=== PATIENT | male | born 1935 | race Caucasian/White ===

== ENCOUNTER → 2018-09-25 | Outpatient (CLI) | payer MEDICARE ==
[~2018-09-25] MED LIST: ASA81 MG PO; DITROPAN5 MG PO; IOPAMIDOL 370 MG/ML 200 ML INFUS..BTL INJ ONE; SODIUM CHLORIDE 0.9% 100 ML 100 ML ONE; Z FELODIPINE PO; Z.0.CLOPIDOGREL75 MG PO; Z.0.LISINOPRIL40 MG PO; Z.0.ZOCOR40 MG PO; Z.1.MINOCYCLINE HC10 PO
[2018-09-25 13:45] LABS: BLOOD UREA NITROGEN 14 mg/dL (7-26); BUN/CREATININE RATIO 18 (6-25); CREATININE, SERUM 0.77 mg/dL (0.72-1.25); EST GLOMERULAR FILTRATION RATE > 60 ML/MIN (60-)
--- NOTE | 2018-09-25 15:47 | Diagnostic Imaging Report ---
CT, CTA lower extremity, with contrast. History: Peripheral vascular disease. Comparison: None available. Technique: Multidetector [address] scanning with 4 mm cuts of the abdomen, pelvis and bilateral lower extremities was performed from the level of the diaphragm to the feet, after intravenous administration of 150 cc of Isovue-370. Scanning during arterial, phases was performed. Coronal and sagittal multiplanar, MIP and 3-D volume-rendering reformations were obtained. Technique modification was utilized to maintain the lowest dose possible to the patient. IV CONTRAST:150mL of Isovue-370 RADIATION DOSE: Total DLP: 693.03 mGy*cm Estimated Effective Dose: DLP x 0.015 mSv COMPLICATIONS: None Discussion: Lower thorax: Coronary artery calcification is present. Severe basilar emphysema. Right lower lobe interstitial opacities. Aortic and abdominal vessels: Calcification within the aorta. Celiac, SMA and bilateral single renal arteries are patent. There is an aorto right iliac graft that is patent. 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 Collateralized reconstitution of the bilateral internal iliac vessels is present. Pelvis vessels: Collateralized reconstitution of internal iliac arteries and the right external iliac artery is noted. Graft anastomosis in the right groin is patent. The left external iliac is occluded with patent femoral profunda vessels. Left [place] SFA and femoropopliteal graft is occluded and the patient is status post vcsvq-cgm-cwnj amputation on the left. Right lower extremity: The [place] right SFA is patent with diffuse areas of atherosclerotic calcification noted. Popliteal is patent. Proximal 3 vessel runoff on the right is present with the posterior tibial extending to the foot. Anterior tibial and peroneal arteries are not visualized past the ankle. Left lower extremity: Status post left aopck-vhh-phll amputation. Occluded femoral artery with only profunda branch is seen in the thigh. There is occlusion of the [place] left SFA and a femoropopliteal graft. Other: There is a benign-appearing cyst involving the upper pole of the left kidney. Both adrenal glands are prominent which may represent hyperplasia. Cyst in the left lobe of the liver. IMPRESSION: 1. Right basilar pulmonary interstitial opacities may represent pneumonia. Clinical correlation suggested. 2. Aorto right femoral graft is patent. 3. 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 4. Left [place] SFA and femoropopliteal graft are occluded. 5. [place] right SFA is patent with significant atherosclerotic calcification. 6. Three-vessel proximal calf runoff with posterior tibial artery extending to the plantar arch. Signed by: Dr. Lb Ortega DO on 09/25/2018 3:44 PM
== END ==
LOC: CT 12:43
PROVIDERS: ATTEND Internal Medicine Cardiovascular Disease
DX: I74.4 Embolism and thrombosis of arteries of extremities, unspecified (principal); I73.9 Peripheral vascular disease, unspecified
CPT/HCPCS: 36415; 73706; 82565; 84520; Q9967

== ENCOUNTER 2018-10-08 09:49 | Inpatient (IN) | payer MEDICARE ==
[2018-10-06 14:03] LABS: BASOPHILS % 0.4 % (0.0-1.0); EOSINOPHILS # (AUTO) 0.1 (0.0-0.4); HEMATOCRIT 44.9 % (38.2-49.6); HEMOGLOBIN 15.4 g/dL (14.0-18.0); LYMPHOCYTES # (AUTO) 1.8 (1.0-3.2); LYMPHOCYTES % 25.1 % (18.0-39.1); MEAN CORPUSCULAR HEMOGLOBIN 30.7 pg (28-32); MEAN CORPUSCULAR HGB CONC 34.3 g/dL (31-35); MEAN CORPUSCULAR VOLUME 89.6 fL (81-99); MONOCYTES # (AUTO) 0.6 (0.2-0.8); MONOCYTES % 8.7 % (4.4-11.3); NEUTROPHILS # (AUTO) 4.5 (2.1-6.9); NEUTROPHILS % 63.7 % (38.7-80.0); PLATELET COUNT 247 x10e3/uL (140-360); RED BLOOD COUNT 5.01 x10e6/uL (4.3-5.7); RED CELL DISTRIBUTION WIDTH 14.1 % (11.7-14.4)
[2018-10-06 14:37] LABS: ALANINE AMINOTRANSFERASE 15 IU/L (0-55); ALBUMIN 3.8 g/dL (3.5-5.0); ALKALINE PHOSPHATASE 75 IU/L (40-150); ANION GAP 12.5 mmol/L (8-16); BLOOD UREA NITROGEN 15 mg/dL (7-26); BUN/CREATININE RATIO 18 (6-25); CALCIUM 10.1 mg/dL (8.4-10.2); CARBON DIOXIDE 27 mmol/L (22-29); CHLORIDE 102 mmol/L (98-107); CHOL/HDL RATIO 2.6 (3.9-4.7); CHOLESTEROL 156 MD/DL (0-199); CREATINE KINASE 37 IU/L (30-200); CREATININE, SERUM 0.83 mg/dL (0.72-1.25); EST GLOMERULAR FILTRATION RATE > 60 ML/MIN (60-); GLUCOSE 71 mg/dL (74-118); HDL CHOLESTEROL 61 MG/DL (40-60); LDL CHOLESTEROL 79 MG/DL (60-130); POTASSIUM 4.5 mmol/L (3.5-5.1); SODIUM 137 mmol/L (136-145); TRIGLYCERIDES 81 MG/DL (0-149)
--- NOTE | 2018-10-06 15:08 | Diagnostic Imaging Report ---
EXAMINATION: CHEST 2 VIEWS INDICATION: Preoperative radiograph. COMPARISON: None FINDINGS: TUBES and LINES: None. LUNGS: The lungs are hyperinflated. There are emphysematous changes of lungs. There is a nodular opacity which projects over the left lower lung. There is patchy opacity in the right lower lung, best seen on lateral radiograph. Linear opacity in the right upper lung may represent scarring or atelectasis. PLEURA: No pleural effusion or pneumothorax. HEART AND MEDIASTINUM: The cardiomediastinal silhouette is unremarkable. There are atherosclerotic calcifications within the aorta. BONES AND SOFT TISSUES: Diffuse osteopenia. There is moderate loss of vertebral body height in the midthoracic vertebral body and mild loss of vertebral body height in a lower thoracic vertebral body. UPPER ABDOMEN: No free air under the diaphragm. IMPRESSION: Emphysematous changes of the lungs. Nodular opacity projecting over the left lower lung may represent nipple shadow or pulmonary nodule. Suggest follow-up chest radiograph with nipple markers or chest CT for further evaluation. Patchy opacity in the right lower lung may represent pneumonia or atelectasis. This can be assessed on follow-up chest radiograph or chest CT. Age-indeterminate moderate loss of vertebral body height in a mid thoracic vertebral body and mild loss of vertebral body height in a lower thoracic vertebral body. Signed by: Dr. Jacob Perez MD on 10/06/2018 3:04 PM
[2018-10-08] VITALS (17 sets, daily range): BP systolic 115–166; BP diastolic 52–85
[~2018-10-08] VITALS: Ht 170.2 cm; Wt 63.6 kg
[~2018-10-08 09:49] MED LIST changes: +AMLODIPINE BESY10 MG PO; +CENTRUM ULTRA1 EAC1 PO; -IOPAMIDOL 370 MG/ML 200 ML INFUS..BTL INJ ONE; +MUCINEX DM ER1 EACH PO; -SODIUM CHLORIDE 0.9% 100 ML 100 ML ONE; +VITAMIN D3 PO
--- OUTSIDE RECORDS SUMMARY | 2018-10-08 09:52 | XMS REPORT ---
Author Author [facility] Address Unknown Phone Unavailable Care Team Providers Care Car Repairman Name Role Phone RASHEED MCDANIEL Unavailable Unavailable Problems This patient has no known problems. Allergies, Adverse Reactions, Alerts This patient has no known allergies or adverse reactions. Medications This patient has no known medications. Results Test Description Test Time Test Comments Text Results Atomic Results Result Comments CHEST 2 VIEWS 2018-10-06 14:57:00 [facility] [address] [address] Patient Name: ADRIANA BENNETT MR #: [id number] : 1935 Age/Sex: 82/M Req #: [id number] [facility] Physician: Ordered by: RASHEED MCDANIEL MD Report #: [id number] Location: LIGHT BULB TESTER Room/Bed: Procedure: [id number] DX/CHEST 2 VIEWS Exam Date: 10/06/18 Exam Time: 1411 REPORT STATUS: Signed EXAMINATION: CHEST 2 VIEWS INDICATION: Preoperative radiograph. COMPARISON: None FINDINGS: TUBES and LINES: None. LUNGS: The lungs are hyperinflated. There are emphysematous changes of lungs. There is a nodular opacity which projects over the left lower lung. There is patchy opacity in the right lower lung, best seen on lateral radiograph. Linear opacity in the right upper lung may represent scarring or atelectasis. PLEURA: No pleural effusion or pneumothorax. HEART AND MEDIASTINUM: The cardiomediastinal silhouette is unremarkable. There are atherosclerotic calcifications within the aorta. BONES AND SOFT TISSUES: Diffuse osteopenia. There is moderate loss of vertebral body height in the midthoracic vertebral body and mild loss of vertebral body height in a lower thoracic vertebral body. UPPER ABDOMEN: No free air under the diaphragm. IMPRESSION: Emphysematous changes of the lungs. Nodular opacity projecting over the left lower lung may represent nipple shadow or pulmonary n odule. Suggest follow-up chest radiograph with nipple markers or chest CT for further evaluation. Patchy opacity in the right lower lung may represent pneumonia or atelectasis. This can be assessed on follow-up chest radiograph or chest CT. Age-indeterminate moderate loss of vertebral body height in a mid thoracic vertebral body and mild loss of vertebral body height in a lower thoracic vertebral body. Signed by: Dr. Deanna Najera MD on 10/06/2018 3:04 PM Dictated By: DEANNA NAJERA MD 1504 Transcribed By: ABDIAZIZ on 10/06/18 1504 COPY TO: RASHEED MCDANIEL MD CTA LOWER EXTREMITY RT ONLY 2018-09-25 15:22:00 [address] [address] Patient Name: ADRIANA BENNETT MR #: [id number] : 1935 Age/Sex: 82/M Req #: [id number] Physician: Ordered by: RASHEED MCDANIEL MD Report #: [id number] Location: CT Room/Bed: Procedure: [id number] CT/CTA LOWER EXTREMITY RT ONLY Exam Date: 09/25/18 Exam Time: 1420 REPORT STATUS: Signed CT, CTA lower extremity, with contrast. H istory: Peripheral vascular disease. Comparison: None available. Technique: Multidetector [address] scanning with 4 mm cuts of the abdomen, pelvis and bilateral lower extremities was performed from the level of the diaphragm to the feet, after intravenous administration of 150 cc of Isovue- 370. Scanning during arterial, phases was performed. Coronal and sagittal multiplanar, MIP and 3-D volume-rendering reformations were obtained. Technique modification was utilized to maintain the lowest dose possible to the patient. IV CONTRAST:150mL of Isovue-370 RADIATION DOSE: Total DLP: 693.03 mGy*cm Estimated Effective Dose: DLP x 0.015 mSv COMPLICATIONS: None Discussion: Lower thorax: Coronary artery calcification is present. Severe basilar emphysema. Right lower lobe interstitial opacities. Aortic and abdominal vessels: Calcification within the aorta. Celiac, SMA and bilateral single renal arteries are patent. There is an aorto right iliac graft that is patent. 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 Collateralized reconstitution of the bilateral internal iliac vessels is present. Pelvis vessels: Collateralized reconstitution of internal iliac arteries and the right external iliac artery is noted. Graft anastomosis in the right groin is patent. The left external iliac is occluded with patent femoral profunda vessels. Left [place] SFA and femoropopliteal graft is occluded and the patient is status post hdpzr-iqm-vafx amputation on the left. Right lower extremity: The [place] right SFA is patent with diffuse areas of atherosclerotic calcification noted. Popliteal is patent. Proximal 3 vessel runoff on the right is present with the posterior tibial extending to the foot. Anterior tibial and peroneal arteries are not visualized past the ankle. Left lower extremity: Status post left chgdk-diz-njbh amputation. Occluded femoral artery with only profunda branch is seen in the thigh. There is occlusion of the [place] left SFA and a femoropopliteal graft. Other: There is a benign-appearing cyst involving the upper pole of the left kidney. Both adrenal glands are prominent which may represent hyperplasia. Cyst in the left lobe of the liver. IMPRESSION: 1. Right basilar pulmonary interstitial opacities may represent pneumonia. Clinical correlation suggested. 2. Aorto right femoral graft is patent. 3. 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 4. Left [place] SFA and femoropopliteal graft are occluded. 5. [place] right SFA is patent with significant atherosclerotic calcification. 6. Three-vessel proximal calf runoff with posterior tibial artery extending to the plantar arch. Signed by: Dr. Alayna Ortega DO on 09/25/2018 3:44 PM Dictated By: ALAYNA ORTEGA DO 1544 Transcribed By: ABDIAZIZ on 09/25/18 1544 COPY TO: RASHEED MCDANIEL MD
[2018-10-08] MEDS ORDERED: METHYLPREDNISOLONE SOD SUCC 125 MG/2ML VIAL ONE (12:07)
[2018-10-08] MEDS ORDERED: DIPHENHYDRAMINE HCL INJ 50 MG/ML VIAL ONE (12:07)
[2018-10-08] MEDS ORDERED: FAMOTIDINE 20 MG TAB ONE (12:08)
--- NOTE | 2018-10-08 12:12 | NUR ---
Solumedrol 125mg IVP, Benadryl 50mg IV and Pepcid 20mg po given pre-op as ordered. Pt tolerated well.
[2018-10-08] MEDS ORDERED: LIDOCAINE HCL 2% LOCAL 20 ML VIAL ONE (13:21)
[2018-10-08] MEDS ORDERED: MIDAZOLAM HCL 2 MG/2 ML VIAL ONE (13:21)
[2018-10-08] MEDS ORDERED: FENTANYL CITRATE/PF 100MCG/2 ML INJ ONE (13:21)
[2018-10-08] MEDS ORDERED: SODIUM CHLORIDE 0.9% 1000ML 1,000 ML ONE (13:22)
[2018-10-08] MEDS ORDERED: HEPARIN SOD/SOD CHLORIDE 2,000 ML ONE (13:22)
[2018-10-08] MEDS ORDERED: IOPAMIDOL 300MG/ML 100 ML INFUS..BTL IV ONE (13:22)
[2018-10-08] MEDS ORDERED: BIVALRIUDIN 250 MG/VIAL VIAL IV ONE (14:41)
[2018-10-08] MEDS ORDERED: SODIUM CHLORIDE 0.9% 50ML 50 ML ONE (14:41)
--- NOTE | 2018-10-08 16:00 | NUR ---
1600p Received pt from well shooter Nurse Corky COVARRUBIAS.Identifierx2 Back to baseline Resp shallow and regular Rt SFA sheath remain in place no Gross signs pain pallor or pressure This is Antegrade stick that requires longer hold Dr Tejada spoke with pt and family regarding necessity of Icu bed. Received 192 Bed assignment awaiting bed readiness .Report to Shon Covarrubias Icu Nurse regarding pt status. After 7pm may be pulled then Bedrest till 8am. Iv infusing w/o s/s infiltration 7occhr Family remains at bedside VS stable NSR. ds/rn
--- NOTE | 2018-10-08 16:00 | NUR ---
1600 received pt in slab worker #10Peripheral angiogram Dr Tejada Total rt FSA blockage needed clearing for pantheistic left foot assist device to be implemented.5FR sheath remain sutured in place and ok to remove 1899. Stick was antorgrade. Bed ordered for ICu has Ns Iv replaced with D51/2 at 70cchr via dial a flow per Dr Carlos request since pt flat and NPO. Iv site w/o s/s infiltration. Angio max infusion completed per slab worker nurse Ruthie. Pt received 25 fentanyl and 1 versed in procedure. Rt marylin dressing dry and intact. Condom cath attached to bedside drain and urine clear.Pt has Iodine allergy and pre medicated per ICU team to prevent reaction. Report was given to Danilo COVARRUBIAS. Foot remain warm to touch with blanching less than 3seconds No digression of circulation to extremity. Family at bedside Aware of plan of care and Dr Tejada spoke with family in slab worker. Bed request in teletracker and house supv as well as ICU aware of necessity of down time to 8am. cecil/veronique Addendum: 10/08/18 at 2052 by Homa Lipscomb RN 1600 correction premed for iodine allergy given by slab worker sedation nurses in slab worker. No noted allergy reaction noted during or after slab worker procedure. faisal
[2018-10-08] MEDS ORDERED: HYDROCODONE/APAP 5MG-325MG TAB PO PRN (16:45)
--- NOTE | 2018-10-08 19:00 | NUR ---
1900 Transfered pt via bed to ICU 192 with Zoll monitor, No gross issues of pain ,pallor, pressure or dysrhythmia.Rt sheath intact no oozing or hematoma.Gave verbal phone report to Danilo REAGAN who requested holding pt additional 30minutes We did give addional second face to face report after shift change. Did have Supv. Kate Reagan assist with escort of pt via bed. No active CP or complaints.Left pt with side rails up and tele on per ICU nurses call light at bedside. ds/rn
[2018-10-08] MEDS: DEXTROSE 5%/0.45% SOD CHL 1,000 ML IV SCH (21:15)
[2018-10-08] MEDS: LORAZEPAM 0.5 MG TAB PO PRN (21:45)
[2018-10-08] MEDS ORDERED: HALOPERIDOL LACTATE 5 MG/ML VIAL IV STA (22:33)
[2018-10-08] MEDS ORDERED: HALOPERIDOL LACTATE 5 MG/ML VIAL ONE (22:37)
[2018-10-08] MEDS ORDERED: LORAZEPAM INJ 2 MG/ML VIAL ONE (23:07)
[2018-10-08] MEDS ORDERED: NICOTINE 21 MG/EA PATCH ONE (23:15)
[2018-10-08] MEDS ORDERED: NICOTINE 21 MG/EA PATCH TOP STA (23:31)
[2018-10-08] MEDS ORDERED: LORAZEPAM INJ 2 MG/ML VIAL IV STA (23:31)
[2018-10-09] VITALS (21 sets, daily range): BP systolic 122–176; BP diastolic 56–92
[2018-10-09] MEDS ORDERED: LORAZEPAM INJ 2 MG/ML VIAL IV ONE (05:00)
--- NOTE | 2018-10-09 05:10 | NUR ---
pt is refusing to keep any monitoring equipment on rips very thing he has on his body off called dr crowley got order for medication did not make any change in condition. he is refusing to follow orders when it comes to keeping his leg straight after sheath removal. has attemppted to get out of bed several times and has become increasingly violent with staff
[2018-10-09] MEDS: LORAZEPAM 0.5 MG TAB PO PRN ×2 (09:25→21:26)
--- NOTE | 2018-10-09 10:42 | Diagnostic Imaging Report ---
EXAM: CHEST SINGLE (PORTABLE) DATE: 10/09/2018 9:54 AM INDICATION:Pneumonia COMPARISON: Chest x-ray, 10/06/2018 FINDINGS: Lines and tubes: None Heart size normal. Previous patchy opacity in the left lower lobe has improved. There is a persistent 1.3 cm nodular density in the lower lobe which may represent a pulmonary nodule or overlapping vascular markings. No pleural effusion or pneumothorax. Upper abdomen unremarkable. No acute bony abnormality. IMPRESSION: 1. Improvement of lower lobe pneumonia since last exam. 2. Persistence of 1.3 cm nodular density in the left lower lobe. Recommend noncontrast chest CT to exclude lung nodule. Signed by: Dr. Shahid Watson M.D. on 10/09/2018 10:39 AM
[2018-10-09] MEDS ORDERED: PANTOPRAZOLE 40 MG 10ML VIAL IV SCH (11:15)
[2018-10-09 11:18] LABS: BASOPHILS % 0.2 % (0.0-1.0); EOSINOPHILS % 0.1 % (0.0-6.0); HEMATOCRIT 44.9 % (38.2-49.6); HEMOGLOBIN 15.1 g/dL (14.0-18.0); LYMPHOCYTES # (AUTO) 1.3 (1.0-3.2); LYMPHOCYTES % 8.3 % (18.0-39.1); MEAN CORPUSCULAR HEMOGLOBIN 30.4 pg (28-32); MEAN CORPUSCULAR HGB CONC 33.6 g/dL (31-35); MEAN CORPUSCULAR VOLUME 90.3 fL (81-99); MONOCYTES # (AUTO) 1.2 (0.2-0.8); MONOCYTES % 7.6 % (4.4-11.3); NEUTROPHILS # (AUTO) 12.8 (2.1-6.9); NEUTROPHILS % 83.5 % (38.7-80.0); PLATELET COUNT 269 x10e3/uL (140-360); RED BLOOD COUNT 4.97 x10e6/uL (4.3-5.7); RED CELL DISTRIBUTION WIDTH 13.9 % (11.7-14.4)
[2018-10-09 11:31] LABS: ANION GAP 12.9 mmol/L (8-16); BLOOD UREA NITROGEN 14 mg/dL (7-26); BUN/CREATININE RATIO 19 (6-25); CALCIUM 9.9 mg/dL (8.4-10.2); CARBON DIOXIDE 23 mmol/L (22-29); CHLORIDE 106 mmol/L (98-107); CREATININE, SERUM 0.72 mg/dL (0.72-1.25); EST GLOMERULAR FILTRATION RATE > 60 ML/MIN (60-); GLUCOSE 112 mg/dL (74-118); POTASSIUM 3.9 mmol/L (3.5-5.1); SODIUM 138 mmol/L (136-145)
--- NOTE | 2018-10-09 12:52 | Diagnostic Imaging Report ---
EXAMINATION: CT scan of the chest without contrast. TECHNIQUE: Spiral CT images of the chest were performed from the lung apices to the level of the adrenal glands. No intravenous contrast was administered per referring physician request. Coronal and sagittal reformatted images were obtained. COMPARISON: Single view chest 10/09/2018, CTA abdomen and pelvis and right lower extremity 09/25/2018 CLINICAL HISTORY:Pneumonia DISCUSSION: ABSENCE OF INTRAVENOUS CONTRAST DECREASES SENSITIVITY FOR DETECTION OF FOCAL LESIONS AND VASCULAR PATHOLOGY. LINES/TUBES: None. LUNGS AND AIRWAYS: Advanced upper lobe predominant centrilobular and paraseptal emphysematous changes. 1.8 cm spiculated discoid opacity with architectural distortion in the right apex (series 3 image 53). 1.8 cm lobulated nodule in the anterior segment of the left lower lobe, abutting the major fissure (series 3 image 81). 6 mm nodule in the posterior segment of the left lower lobe series 3 image 85) coarse reticular opacities in the dependent lower lobes likely reflect subsegmental atelectasis or focal fibrotic change. Trachea, mainstem bronchi, and central lobar and segmental bronchi are patent. Endobronchial debris in the posterior basal segmental right lower lobe bronchus series 3 image 98). PLEURA: No pneumothorax or pleural effusions. HEART AND MEDIASTINUM: Visualized portions of the thyroid gland are normal. Borderline ectasia of the ascending thoracic aorta (3.9 cm). Atherosclerotic calcifications of the [place] coronary arteries and great vessel origins which are otherwise normal in caliber and configuration. Pulmonary outflow tract is of normal caliber. Normal heart size. Trace pericardial effusion. LYMPH NODES: No axillary, hilar, or mediastinal lymphadenopathy. ABDOMEN: Visualized portions of the liver are notable for a cyst in segment 3. Left renal cyst is again noted. Density within the gallbladder likely reflects biliary excretion of intravenous contrast from CTA lower extremity 09/25/2018. Subcentimeter hyperdense left upper pole renal lesion is too small to further characterize though likely represents a hemorrhagic or proteinaceous cyst. BONES AND SOFT TISSUES: Diffuse osteopenia. No osseous destructive lesions. Age-indeterminate mild anterior compression deformity of T8. Multilevel degenerative disc changes of the cervical and thoracic spine. Bilateral healed rib fracture deformities. IMPRESSION: Reticular and groundglass opacities in the dependent lower lobes, right greater than left, likely aspiration pneumonitis given presence of endobronchial debris within right lower lobe segmental bronchi as above. Advanced emphysematous changes. Right apical spiculated discoid opacity likely represents post infectious or inflammatory fibrotic change, though the differential diagnosis includes primary lung neoplasm. Similarly, 1.8 cm left lower lobe lobulated nodule is indeterminate. Given presence of 2 suspicious nodules and advanced emphysematous changes portending high risk of complication in the attempt of percutaneous biopsy, PET-CT should be considered to further evaluate metabolic activity of the nodules prior to tissue sampling. Age-indeterminate mild anterior compression deformity of T8. Point tenderness over this region of the spine would suggest relative acuity. Signed by: Dr. Blaine Schrader M.D. on 10/09/2018 12:49 PM
--- NOTE | 2018-10-09 13:35 | NUR ---
Visit made by the Spiritual Care Department Pastoral Visitor, Elvis Mcarthur. PV provided pastoral presence, prayer, hospitality, and supportive listening. Pastoral Visitor informed pt/family of the scope of [employer] and availability. KELSEY FELIX [employer] Worker Spiritual Care Department O: [phone] Pager: [phone] ([phone] + number calling from)
--- NOTE | 2018-10-09 15:28 | Operative Report ---
DATE OF PROCEDURE: 10/08/2018 SURGEON: Jonatan Johnson MD DIAGNOSES: 1. Severe peripheral vascular disease of the right lower extremity. 2. 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 3. Hyperlipidemia. 4. Hypertension. 5. Chronic obstructive pulmonary disease. PROCEDURES: 1. Right femoral angiogram, antegrade. 2. Unsuccessful attempt to cannulate the total occlusion of the right distal superficial femoral artery. ANESTHESIA: Local and moderate sedation with 1 mg of Versed and 25 mcg of fentanyl. INDICATIONS: This 82-year-old patient was recently evaluated because of claudication and swelling of the right lower extremity while in preparation for getting a prosthesis of the left lower extremity by the [facility]. The patient had initial ultrasound examinations, which did not reveal any DVT; however, the ultrasound study on September 23 showed severe disease of the right lower extremity with single-vessel runoff in the posterior descending branch towards the collaterals to the dorsalis pedis. Subsequently, the patient had CTA of the right lower extremity, which also showed severe disease of the right superficial femoral artery with multiple high-grade stenotic areas. However, the right popliteal and posterior tibial trunk as well as posterior tibial artery were patent. There were short segments of the peroneal and right anterior tibial arteries noted, which were totally occluded in their proximal portion. The study also showed that the graft from the aorta to the left femoral artery has been occluded as well as total occlusion of both common iliac arteries. There was some collateral flow to the left femoral artery and profunda branch. Recognizing the severe disruption of arterial blood flow to the stump of the left leg, preparation of prosthesis of the left lower extremity and showing such severe stenotic areas on the right lower extremity, which probably is not going to support the ambulation of the patient and his present symptoms affecting his right lower extremity, he was advised to undergo right femoral angiogram and possible intervention and the patient was now admitted for the study and the recommended procedure. DESCRIPTION OF PROCEDURE: After the usual prepping and draping, the right inguinal area was infiltrated with local lidocaine. Micropuncture kit was utilized to get access to the right femoral artery and a 5-[place] arterial sheath was then placed into the right femoral artery followed by angiogram of the right lower extremity. It was found that in addition to the high-grade stenotic areas in the proximal, mid, and distal portion of the right SFA, there was now total occlusion of the distal right superficial femoral artery, popliteal artery, anterior tibial peroneal branch, and only a collateral connection was seen, which originated just distal to a high-grade 99% stenosis involving the right SFA to the posterior tibial branch. This apparently had occurred after the CTA performed on September 25 showing real rapid progression of the patient's disease involving the right lower extremity. Since the total occlusion appeared to be recently, it was considered to intervene and attempt to open up the total occlusion of the distal superficial femoral artery. However, because of the multiple stenotic areas in entire right superficial femoral artery course, this became quite difficult to advance guidewire to the area of total occlusion. The guidewire could not be advanced beyond the total occlusion and after changing 0.014 Hi-Torque Floppy guidewire to a 0.014 Whisper guidewire. Seeker catheter by Roman was then advanced over the guidewire and positioned just at the level of the total occlusion. Throughout this procedure, the patient had been given initial Angiomax bolus and was continued on an Angiomax drip. However, even with support of the Seeker and the previously using a 4 mm x 2 cm Emerge balloon catheter, it was impossible to advance the Whisper guidewire into the total occlusion involving the distal segment of the superficial femoral artery and popliteal artery as described above. After the advancement of the guidewire has failed and limit of the radiation supposedly has been reached, it was felt that the procedure should be terminated and the alternative to advance a stiffer guidewire through the Seeker for achievement of crossing the lesion was abolished. The guidewire and Seeker catheter were then removed, the arterial sheath was secured with sterile dressing and the patient was transferred in the observation area. Angiomax was discontinued and the sheath will be removed within 2-3 hours thereafter. All this information was relayed to the patient and to the and nieces of the patient. Final. IMPRESSION: Severe peripheral vascular disease with high-grade stenotic areas involving the right entire superficial femoral artery and the total occlusion of the distal superficial femoral artery with only a single collateral to the posterior tibial artery branch showing patency to the right foot. The situation is quite precarious and the patient is at higher risk of possibly losing his right lower extremity. Certainly other intervention could be considered in addition to right femoral to posterior tibial artery bypass using the patient's saphenous vein. The patient was encouraged to discontinue his heavy smoking which certainly is the main contributor to the patient's severe peripheral vascular disease. MD AMALIA Hunt/MODL /[id number] cc: Kennedy Keita MD
[2018-10-09] MEDS ORDERED: OLANZAPINE 5 MG TAB PO PRN (15:30)
[2018-10-09] MEDS: DEXTROSE 5%/0.45% SOD CHL 1,000 ML IV SCH ×2 (16:29→19:52)
[2018-10-09] MEDS: CEFTRIAXONE SOD 1 GM/NS 50 ML 50 ML IV SCH (16:29)
[2018-10-09] MEDS ORDERED: PANTOPRAZOLE SOD 40 MG TABEC PO SCH (17:00)
[2018-10-09] MEDS: PANTOPRAZOLE 40 MG 10ML VIAL IV SCH (17:48)
[2018-10-09] MEDS: HALOPERIDOL LACTATE 5 MG/ML VIAL IM PRN (19:37)
--- NOTE | 2018-10-09 22:50 | Consultation ---
DATE OF CONSULTATION: 10/09/2018 Psychiatric Consultation. REASON FOR CONSULTATION: To evaluate the patient for confusion. HISTORY OF PRESENT ILLNESS: The patient is an 82 years old male, admitted to the hospital for a peripheral angiogram. Psychiatric consultation sought to evaluate the patient's psychosis and mood. Upon evaluation, the patient is currently in the ICU, surrounded by his family members. The patient agrees to have a members present during the assessment. The patient is alert, awake, and oriented to self. He had difficulty with word finding and took quite some time to state that he is in the hospital. He does not know the current year. He states that he has been feeling depressed due to his medical issues. The patient claims that he has problems with his legs. He denies feeling hopeless or helpless. Denies any hallucination. Denies any problem with appetite or sleep. Collaborative report from the , who reports the patient has been depressed due to his legs. He has left above knee amputation and he was scheduled to have possible right leg prosthesis, but the right leg now having problem, so there may be a possible amputation to the right leg as well. This is a report from the patient's . She is concerned that he is smoking lot and refuses to stop. As per nursing staff, the patient was agitated today and he had the nurse and he received Ativan and it helped and relaxed him the patient's agitation. Nurse also reports that he was hallucinating and threaten to (cut her nose). PAST PSYCHIATRIC HISTORY: The patient denies any past psychiatric history. He denies any past suicide attempts. He denies any alcohol or drug use. FAMILY HISTORY: Denies. SOCIAL HISTORY: The patient lives with his . MENTAL STATUS EXAM: The patient is elderly man, who is alert, awake, and oriented to situation. His mood is depressed and denies any suicidal or homicidal ideation. He denies any hallucination. Thought process is concrete. No delusional disorder. Insight and judgment are fair. Memory appears to be grossly intact. CURRENT MEDICATION: 1. Ativan 0.5 mg p.o. three times a day as needed. 2. Dextrose/sodium chloride. 3. Ceftriaxone. 4. Protonix. 5. Clonidine. 6. Wright. CURRENT LAB: WBC 15.3, RBC , hemoglobin 15.1, hematocrit 44.9. Chemistry: Sodium 138, potassium 3.9, chloride 106, CO2 of 23, BUN 14, and creatinine 0.72. ASSESSMENT AND PLAN: 1. Unspecified psychosis. 2. Unspecified dementia with behavior disturbances. PLAN: 1. To continue Ativan 0.5 mg p.o. three times a day as needed. 2. . 3. Wellbutrin 75 mg p.o. daily. 4. Zyprexa 2.5 mg p.o. q.6 hours p.r.n. 5. Monitor agitation and mood. 6. Supportive therapy. Thank you for this consultation. Dictated by Dawna Virk PA-C Yolette Amado MD QTV/MODL /[id number]
--- NOTE | 2018-10-09 23:32 | NUR ---
ATTEMPTED TO UN RESTRAIN PATIENT WITH AT BEDSIDE. PATIENT VERY COMBATIVE AND ATTEMPTS TO KICK STAFF AND SCREAMING OUT. ALL STAFF REQUIRED TO HOLD HIM DOWN AND RESTRAIN AGAIN. PATIENT IS UNSAFE
[2018-10-10] VITALS (15 sets, daily range): BP systolic 135–187; BP diastolic 67–107
--- NOTE | 2018-10-10 01:46 | NUR ---
PATIENT WITH OCCASIONAL BRADYCARDIA WHEN SLEEPING
[2018-10-10] MEDS: PANTOPRAZOLE 40 MG 10ML VIAL IV SCH ×2 (10:20→21:11)
[2018-10-10] MEDS: BUPROPION HCL 75 MG TAB PO SCH (10:20)
[2018-10-10] MEDS: ALBUTEROL/IPRATROPIUM 3 ML NEB NEB SCH ×2 (13:45→18:48)
[2018-10-10] MEDS: NICOTINE 21 MG/EA PATCH TOP SCH (19:04)
--- NOTE | 2018-10-10 19:06 | NUR ---
Received patient to unit from ICU at this time. Patient is currently A&Ox3. No pain reported. Lung sounds clear. Bowel sounds active. No IV access at this time, PICC line to be placed shortly. Explained necessity of NPO status due to aspiration risk. Patient and family member verbalized understanding. Skin is thin, small skin tear noted to hands. Allevyn patch to sacrum. C/D/I. Q2 turns initiated. Bed locked in lowest position, side rails upx2, call light in reach.
--- NOTE | 2018-10-10 20:47 | Diagnostic Imaging Report ---
EXAMINATION: CHEST XRAY LINE PLACEMENT INDICATION: ^PICC plalcement confirmation ^[id number] ^2009 COMPARISON: 10/09/2018 FINDINGS: AP view TUBES and LINES: Right PICC in place with tip projecting over the mid to inferior SVC. LUNGS: Lungs are well inflated. Mild interstitial edema. Emphysematous changes, right upper lobe opacity, and left lower lobe nodule, better seen on prior CT. Mild left lower lung field haziness. PLEURA: No significant pleural effusion or pneumothorax. HEART AND MEDIASTINUM: The cardiomediastinal silhouette is unremarkable. BONES AND SOFT TISSUES: No acute osseous lesion. Soft tissues are unremarkable. UPPER ABDOMEN: No free air under the diaphragm. IMPRESSION: Right PICC in place with tip projecting over the mid to inferior SVC. No visible pneumothorax. Mild interstitial edema. Emphysematous changes and nodular opacities, better seen on prior CT. Focal mildly increased left lower lung field haziness, representing atelectasis and/or pneumonia in the appropriate clinical context. Signed by: Dr. Don Rivero MD on 10/10/2018 8:44 PM
[2018-10-10] MEDS: DEXTROSE 5%/0.45% SOD CHL 1,000 ML IV SCH (21:07)
[2018-10-10] MEDS: CEFTRIAXONE SOD 1 GM/NS 50 ML 50 ML IV SCH (21:08)
[2018-10-10] MEDS: CLONIDINE HCL 0.1 MG TAB PO PRN (21:15)
--- NOTE | 2018-10-10 21:15 | NUR ---
Patient's PICC line placed. Patient requested bedbath, so could not start IV fluids until this time. IV fluids, antibiotic, and protonix delayed from day shift due to no IV access. Fluids initiated at this time. PICC line asymptomatic, intact, and patent. Patient's BP was 187/80, medication given in applesauce. Patient sat up to 90 degrees, no difficulty swallowing noted. Instructed patient to stay up in bed at least 30 mins. Patient, family member, and staff verbalized understanding. Will continue to monitor.
[2018-10-11] VITALS (8 sets, daily range): BP systolic 127–165; BP diastolic 62–70
[2018-10-11] MEDS: ALBUTEROL/IPRATROPIUM 3 ML NEB NEB SCH ×4 (00:37→18:55)
--- NOTE | 2018-10-11 02:45 | NUR ---
Telemetry called with patient's HR in 30s and 40s. When roused, HR goes back up.
--- NOTE | 2018-10-11 07:15 | NUR ---
MET PATIENT FOR BEDSIDE REPORT WITH OFF-GOING RNLG, PATIENT DENIED PAIN, PATIENT ALERT AND ORIENTED TO PERSON, PLACE, TIME, AND SITUATION, PATIENT DENIES PAIN AND DISCOMFORT, PATIENT'S LEFT LEG SHOWS PINKNESS UP UNTIL HIS JUST ABOVE HIS ANKLE WHERE THE SKIN IS DARK RED, PATIENT'S LEFT LEG IS COOL TO THE TOUCH, PATIENT SHOWS NO SIGNS OF DISTRESS.
[2018-10-11] MEDS: NICOTINE 21 MG/EA PATCH TOP SCH (11:16)
[2018-10-11] MEDS: BUPROPION HCL 75 MG TAB PO SCH (11:16)
[2018-10-11] MEDS: PANTOPRAZOLE 40 MG 10ML VIAL IV SCH ×2 (11:16→16:26)
[2018-10-11] MEDS: DEXTROSE 5%/0.45% SOD CHL 1,000 ML IV SCH (11:16)
[2018-10-11] MEDS: CEFTRIAXONE SOD 1 GM/NS 50 ML 50 ML IV SCH (16:26)
--- NOTE | 2018-10-11 19:08 | NUR ---
Received patient in report. Patient is A&Ox3, smiling at staff. Patient reports no pain at this time. R upper arm PICC line asymptomatic, intact, and patent. Bed locked in lowest position, with bed alarm on, side rails upx2, call light in reach.
[2018-10-12] VITALS (7 sets, daily range): BP systolic 124–163; BP diastolic 61–71
[2018-10-12] MEDS: DEXTROSE 5%/0.45% SOD CHL 1,000 ML IV SCH ×3 (01:57→23:06)
--- NOTE | 2018-10-12 03:45 | NUR ---
Patients bed alarm went off. Entered room to find patient sitting on side of bed, gown off, tele monitor off. Asked patient why he was trying to get out of bed, patient stated he thought something fell off the bed that needed to get and wasn't sure exactly what happened. Replaced gown on patient, explained if something fell off the bed to call us and we would get it, and he needed to stay in bed for safety. Patient verbalized understanding. Patient cooperated getting in bed and situated. No pain reported. No S&S of distress noted. Personal belongings placed within patient's reach. Bed locked in lowest position, side rails upx2, call light in reach. Bed alarm on. Alternating pressure pump on. Patient stated he would call if he needed anything but was going to try to go back to sleep.
[2018-10-12 05:41] LABS: BASOPHILS % 0.2 % (0.0-1.0); EOSINOPHILS # (AUTO) 0.1 (0.0-0.4); EOSINOPHILS % 0.9 % (0.0-6.0); HEMATOCRIT 43.1 % (38.2-49.6); HEMOGLOBIN 14.4 g/dL (14.0-18.0); LYMPHOCYTES % 10.8 % (18.0-39.1); MEAN CORPUSCULAR HEMOGLOBIN 30.3 pg (28-32); MEAN CORPUSCULAR HGB CONC 33.4 g/dL (31-35); MEAN CORPUSCULAR VOLUME 90.5 fL (81-99); MONOCYTES # (AUTO) 0.9 (0.2-0.8); NEUTROPHILS % 77.7 % (38.7-80.0); PLATELET COUNT 210 x10e3/uL (140-360); RED BLOOD COUNT 4.76 x10e6/uL (4.3-5.7); RED CELL DISTRIBUTION WIDTH 14.1 % (11.7-14.4)
[2018-10-12 05:56] LABS: ANION GAP 10.9 mmol/L (8-16); BLOOD UREA NITROGEN 11 mg/dL (7-26); BUN/CREATININE RATIO 14 (6-25); CALCIUM 9.1 mg/dL (8.4-10.2); CARBON DIOXIDE 25 mmol/L (22-29); CHLORIDE 106 mmol/L (98-107); CREATININE, SERUM 0.76 mg/dL (0.72-1.25); EST GLOMERULAR FILTRATION RATE > 60 ML/MIN (60-); GLUCOSE 112 mg/dL (74-118); POTASSIUM 3.9 mmol/L (3.5-5.1); SODIUM 138 mmol/L (136-145)
[2018-10-12] MEDS: ALBUTEROL/IPRATROPIUM 3 ML NEB NEB SCH ×4 (08:15→19:00)
[2018-10-12] MEDS: CLONIDINE HCL 0.1 MG TAB PO PRN (08:36)
[2018-10-12] MEDS: NICOTINE 21 MG/EA PATCH TOP SCH (08:36)
[2018-10-12] MEDS: BUPROPION HCL 75 MG TAB PO SCH (08:36)
[2018-10-12] MEDS: PANTOPRAZOLE 40 MG 10ML VIAL IV SCH ×2 (08:36→17:28)
--- NOTE | 2018-10-12 13:42 | Diagnostic Imaging Report ---
EXAM: Modified barium swallow with Speech Pathologist INDICATION: ^aspiration pneumonia ^[id number] ^[id number] COMPARISON: None available. RADIATION DOSE: Fluoroscopy Time: 2.4 min Dose (Kerma) Area Product: 0.61 Gycm2 Air Kerma (AK) value has been reviewed. It is below the limits set by the Radiation Protocol Committee (RPC) committee. FINDINGS: See impression IMPRESSION: Trace laryngeal penetration and silent aspiration with initial ingestion of thin liquid barium. Refer to speech pathology report for detailed description and recommendations. Signed by: Dr. Blaine Schrader M.D. on 10/12/2018 1:38 PM
[2018-10-12] MEDS ORDERED: BISACODYL 5 MG TAB EC PO NR (14:00)
--- NOTE | 2018-10-12 14:35 | NUR ---
SPOKE WITH MD MCDANIEL REGARDING PT PLAN OF CARE STATES PT CAN POSSIBLY GO HOME TOMORROW AFTER STRESS TEST COMPLETE
--- NOTE | 2018-10-12 14:55 | NUR ---
LUJAN DC PER HERMANZ ORDERS . PT VOIDED AFTER LUJAN REMOVAL 50CC ON URINAL
--- NOTE | 2018-10-12 15:12 | Progress Note ---
DATE: 10/12/2018 Psychiatric Progress Note SUBJECTIVE: The patient is evaluated and events noted. The patient is in the room. He is with his . He is alert, awake, and oriented to situation. He is calm, cooperative. The patient does not know the year. He has not received any p.r.n. IM medication or p.r.n. p.o. medications since , which is at least 2 ago. He is at baseline as per the . He denies any depression. Denies anxiety. Denies any hallucinations. He states that he did not sleep well last night. He denies any problem with appetite. He is taking his medications and denies any side effects. ASSESSMENT AND PLAN: 1. Unspecified psychosis. 2. Unspecified dementia with behavior disturbances. 3. Continue with Wellbutrin 75 mg p.o. daily. 4. Continue with Zyprexa 2.5 mg p.o. q.6 hours p.r.n. 5. Continue Ativan 0.5 mg p.o. three times a day as needed. 6. Continue Haldol 2 mg IM q.6 hours p.r.n. 7. Add Namenda 5 mg p.o. daily. 8. Monitor for mood. 9. Supportive therapy. Dictated by Dawna Virk PA-C Yolette Amado MD QTV/MODL /[id number]
[2018-10-12] MEDS: CEFTRIAXONE SOD 1 GM/NS 50 ML 50 ML IV SCH (15:22)
--- NOTE | 2018-10-12 15:38 | NUR ---
PT OFF UNIT FOR CHEST X RAY
--- NOTE | 2018-10-12 16:14 | Diagnostic Imaging Report ---
Examination: Single AP view of the chest. COMPARISON: Chest radiograph 10/10/2018, CT chest without contrast 10/09/2018 INDICATION: Aspiration pneumonia DISCUSSION: Right upper extremity PICC is unchanged. Lungs are well-inflated with upper lobe predominant emphysematous changes. Patchy bilateral lower lung zone opacities are unchanged. 1.8 cm left lower lung nodule is again noted. Right upper lobe spiculated opacity is seen to better advantage on comparison CT. No new consolidation. Stable cardiomediastinal contour. Unchanged compression deformity of a midthoracic vertebral body. IMPRESSION: Stable emphysematous changes with patchy bibasilar opacities, likely aspiration pneumonitis and associated atelectasis. For further description of thoracic pathology refer to CT chest without contrast 10/09/2018. Signed by: Dr. Blaine Schrader M.D. on 10/12/2018 4:11 PM
--- NOTE | 2018-10-12 16:17 | NUR ---
PT BACK FROM RADIOLOGY. PT IS RESTING IN BED COMFORTABLY RESTING IMAGES FOR STRESS TEST BEING DONE AT THIS TIME
[2018-10-12] MEDS ORDERED: REGADENOSON 0.4 MG/5 ML SYR IV ONE (18:48)
[2018-10-13] VITALS: BP 122/59
--- NOTE | 2018-10-13 05:01 | NUR ---
CHANGED ALLEVYN DRESSING TO SACRUM AT THIS TIME.
[2018-10-13] MEDS: HALOPERIDOL LACTATE 5 MG/ML VIAL IM PRN (06:28)
--- NOTE | 2018-10-13 06:28 | NUR ---
PT IS AGITATED AND COMBATIVE. PT STATED " GIVE ME THE FUCKING PHONE MIGUELINA, I'M GONNA CALL THE EMBOSSING PRESS OPERATOR. I'LL CALM DOWN WHEN THE EMBOSSING PRESS OPERATOR GET HERE. MIGUELINA GIVE ME THE GUN, I'M GONNA START BLOWING HEADS OFF HERE IF THE DON'T GET OUT OF MY HOUSE. THEY'RE TRESPASSING." ORIENTED PT TO PLACE. PT INSIST THAT WE ARE IN HIS HOUSE. MEDICATED WITH HALDOL FOR AGITATION.
--- NOTE | 2018-10-13 07:17 | NUR ---
PT RESTING IN BED AAX2, IS AT BEDSIDE PT IS AGITATED AT THIS TIME, RECEIVED HALDOL ABOUT AN HOUR PT HAS IV FLUIDS WITH D5 TO THE RIGHT UPPER PICC LINE. SITE IS COVERED WITH COBAN AREA IS CLEAN AND DRY WILL CONTINUE TO MONITOR PT AT THIS TIME SIDE RAILSX3, WHEELS LOCKED, CALL LIGHT IS WITHIN EASY REACH, INSTRUCTED TO CALL IF NEEDED BED ALARM ON
[2018-10-13 08:44] VITALS: BP 165/70
[2018-10-13 08:58] VITALS: BP 165/70
[2018-10-13] MEDS: BUPROPION HCL 75 MG TAB PO SCH (08:58)
[2018-10-13] MEDS: PANTOPRAZOLE 40 MG 10ML VIAL IV SCH (08:58)
[2018-10-13] MEDS: NICOTINE 21 MG/EA PATCH TOP SCH (08:58)
[2018-10-13] MEDS ORDERED: MEMANTINE 10 MG TAB PO SCH (09:00)
[2018-10-13] MEDS: DEXTROSE 5%/0.45% SOD CHL 1,000 ML IV SCH (11:24)
--- NOTE | 2018-10-13 11:46 | NUR ---
PT TAKEN FOR STRESS TEST AT THIS TIME VIA WHEEL CHAIR SPOKE WITH THAI REGARDING PT AGITATION STATUS . SHE WILL HAVE SOMEONE STAY WITH PT AT ALL TIMES
[2018-10-13 11:49] VITALS: BP 144/66
[2018-10-13] MEDS: ALBUTEROL/IPRATROPIUM 3 ML NEB NEB SCH (13:00)
[2018-10-13] MEDS ORDERED: LORAZEPAM INJ 2 MG/ML VIAL IM PRN (13:30)
--- NOTE | 2018-10-13 13:31 | NUR ---
SPOKE WITH MD MCDANIEL REGARDING PT STRESS TEST COMPLETE AND FAMILY WANTING PT DC NOTIFIED HIM OF PT MENTAL STATUS OF TODAY WITH INT AGITATION. MD DONIS STATES TO ASK IF SHE HAS SUPPORT TO TAKE CARE OF AT HOME . SPOKE WITH ABOUT WHAT MD MCDANIEL STATES IS CALLING FAMILY FOR SUPPORT SHE WILL LET ME KNOW IF SUPPORT AT HOME IS FOUND
--- NOTE | 2018-10-13 14:25 | NUR ---
WAS APPROACHED BY NURSE WHOM STATES [employer] [facility]LEY WAS TOLD TO PUT IN A SOCIAL SERVICE CONSULT BECAUSE PT NEEDS HOME ASSISTANCE. WENT AND SPOKE WITH PT AND GAVE RESOURCES FOR VISITING [employer] PROVIDER SERVICES AND ALSO A SENIOR RESOURCE GUIDE FOR SHELTER CARE PLACEMENT OPTIONS. ADVISED ALSO TO CALL INSURANCE COMPANY TO SEE IF THEY HAVE PROVIDER SERVICES INCLUDED IN THEIR POLICY AND TO SEE IF THEY CAN SEND OUT A PROJECT ADMINISTRATIVE ASSISTANT TO ASSIST WITH COMMUNITY OPTIONS.
--- NOTE | 2018-10-13 15:06 | NUR ---
SPOKE WITH FAMILY ( ) STATES SHE HAS FOUND SUPPORT SYSTEM TO HELP HER WITH PT. SOCIAL SERVICE CONSULTED AND HAS GIVEN PT OPTIONS FOR ADDITIONAL HELP UPON DISCHARGE NOTIFIED MD MCDANIEL REGARDING THIS . MD CASE WITH PT GOING HOME AT THIS TIME MD ORDERS A FOLLOW UP VISIT ON FRIDAY WILL DC PT AT THIS TIME
[2018-10-13] MEDS ORDERED: WELLBUTRIN SR150 MG PO (15:14)
[2018-10-13] MEDS ORDERED: NAMENDA10 MG PO (15:14)
--- NOTE | 2018-10-13 15:36 | NUR ---
picc line dc, tip intact, pressure dressing applied and taped pt received dc instructions dc instructions and prescriptions signed by at this time pt is now off unit to home
--- NOTE | 2018-10-13 18:03 | Myoview Stress Test ---
DATE OF STUDY: 10/12/2018 13:37:00 Stress Test - Treadmill ONLY STUDY: Nuclear gated myocardial perfusion scan report. Thank you Dr. Estrada for this procedure interpretation consultation. Nuclear gated myocardial perfusion scan performed as per protocol at [facility] Lab at [facility] and Myoview injected 11 mCi for resting protocol and 32 mCi for stress protocol and Lexiscan injected 0.4 mg intravenously stress agent. IMPRESSION: 1. Mild inferior wall ischemia noted. 2. Left ventricular ejection fraction of 60% to 65%. 3. Abnormal nuclear stress test with mild inferior wall ischemia. MD POP [facility]/MODL /[id number]
[2018-10-21] MEDS ORDERED: LORAZEPAM1 MG PO (11:31)
[2018-10-21] MEDS ORDERED: VIBRAMYCIN100 MG PO (11:31)
== END 2018-10-13 15:36 | disposition home or self-care (01) | DRG 299 ==
LOC: CATH LAB 09:49 → ICU 19:42 → MED/SURG 10-10 19:31
PROVIDERS: ADMIT Internal Medicine Cardiovascular Disease; ATTEND Internal Medicine Cardiovascular Disease
PROC: B41F1ZZ Fluoroscopy of Right Lower Extremity Arteries using Low Osmolar Contrast (ICD-10-PCS; principal; 2018-10-08)
PROC: 02HV33Z Insertion of Infusion Device into Superior Vena Cava, Percutaneous Approach (ICD-10-PCS; 2018-10-10)
PROC: B548ZZA Ultrasonography of Superior Vena Cava, Guidance (ICD-10-PCS; 2018-10-10)
DX: I70.211 Atherosclerosis of native arteries of extremities with intermittent claudication, right leg (principal); J69.0 Pneumonitis due to inhalation of food and vomit; F03.91 Unspecified dementia, unspecified severity, with behavioral disturbance; Z89.612 Acquired absence of left leg above knee; J44.9 Chronic obstructive pulmonary disease, unspecified; I10 Essential (primary) hypertension; Z91.041 Radiographic dye allergy status; E78.5 Hyperlipidemia, unspecified; F17.210 Nicotine dependence, cigarettes, uncomplicated; F29 Unspecified psychosis not due to a substance or known physiological condition
CPT/HCPCS: 36247; 36415; 36569; 71045; 71046; 71250; 74230; 75710; 78452; 80048; 80053; 80061; 82550; 85025; 93017; 93306; 93880; 94640; 96361; A9502; C1725; C1769; C1887; J0583; J0696; J1200; J1630; J2001; J2060; J2250; J2930; J7030; Q9967

== ENCOUNTER → 2018-10-21 | Day surgery (SDC) | payer MEDICARE ==
[~2018-10-21] VITALS: Ht 177.8 cm; Wt 56.7 kg
[~2018-10-21] MED LIST changes: +DIPHENHYDRAMINE HCL INJ 50 MG/ML VIAL ONE; +FAMOTIDINE 20 MG TAB ONE; +FENTANYL CITRATE/PF 100MCG/2 ML INJ ONE; +HEPARIN SOD/SOD CHLORIDE 2,000 ML ONE; +IOPAMIDOL 370 MG/ML 200 ML INFUS..BTL INJ ONE; +LIDOCAINE HCL 2% LOCAL 20 ML VIAL ONE; +LORAZEPAM1 MG PO; +METHYLPREDNISOLONE SOD SUCC 125 MG/2ML VIAL ONE; +MIDAZOLAM HCL 2 MG/2 ML VIAL ONE; +NAMENDA10 MG PO; +SODIUM CHLORIDE 0.9% 1000ML 1,000 ML ONE; +VERAPAMIL HCL 2.5 MG/ML 2 ML VIAL ONE; +VIBRAMYCIN100 MG PO; +WELLBUTRIN SR150 MG PO
[2018-10-21 09:45] VITALS: BP 169/63
[2018-10-21 14:37] VITALS: BP 151/47
--- NOTE | 2018-10-21 14:37 | NUR ---
1437pm Received pt in lab pack chemist recovery #10 Identifier [id number].DR Coburn Brachial cut down with left sutured with pressure dressing of Coban.No fix. Ok for dc in 1530pm. at bedside Discharge planning given with copies with family. Pt aware to seek suture removal in one week and keep dressing dry. Respirations shallow and regular. 98% on room air. Tolerated po intake. Iv infusing well w/o s/s infiltration. 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 To car per w/c.Has copies of POC Left arm site re-wrapped and no gross issues pain pallor pressure or dysrhythmia. Left arm has adequate neuro vascular function. Aware of importance of followup care. cecil/veronique
[2018-10-21 14:45] VITALS: BP 128/64
[2018-10-21 15:00] VITALS: BP 144/73
[2018-10-21 15:30] VITALS: BP_SYST 151; BP_DIAS 60; BP_DIAS 77
--- NOTE | 2018-10-21 19:15 | Operative Report ---
DATE OF PROCEDURE: 10/21/2018 SURGEON: Jonatan Johnson MD CARDIAC CATHETERIZATION DIAGNOSES: 1. Coronary artery disease with abnormal nuclear stress test. 2. Hypertension. 3. Chronic obstructive pulmonary disease. 4. Severe peripheral arterial disease. PROCEDURES: 1. Left brachial artery cutdown. 2. Left heart cardiac catheterization including selective coronary arteriogram and left ventricular angiogram. DESCRIPTION OF PROCEDURE: After the usual prepping and draping of the left arm and antecubital fossa, local anesthetic was applied to the left antecubital fossa and the left brachial artery was punctured percutaneously using a micropuncture device. A 5-Micronesian arterial sheath was then placed in the left brachial artery and selective coronary angiogram was performed by using modified Ruthy type catheter. A 5-Micronesian angled pigtail catheter was utilized for recording of hemodynamics and left ventricular angiogram in the 30-degree NAJERA projection. FINDINGS OF CARDIAC CATHETERIZATION: The aortic pressure was 190/68 with a mean of 118 mmHg. The left ventricular pressure was 190 mmHg. The left ventricular end diastolic pressure was elevated at 20 mmHg. There was no gradient across the aortic valve. The left coronary artery showed extensive calcification in the proximal portion of the left main coronary artery LAD and left circumflex system. The patient has left dominant system. The left main coronary artery was normal. The proximal LAD also was normal. There was a large first diagonal branch and there was about 30% stenosis between D1 and D2. Otherwise, there was no significant stenosis in the LAD. The left circumflex artery was large and dominant and showed irregularities along its course causing about 10% to 20% stenotic area. The obtuse marginal #1 and #2 did not disclose any stenotic areas, also the posterior descending branch coming after the circumflex artery was normal. 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 The left ventricular angiogram showed normal ejection fraction of 70%. There was no wall motion abnormality. The mitral annulus was somewhat dilated; however, there was no mitral regurgitation. After the completion of the diagnostic cardiac catheterization and evidence that there was no need for any PCI, repair of the left branchial artery was initiated by making small incision and using the typical cutdown procedure, exposing the left brachial artery, which was closed with [id number] configuration using 6-0 Prolene suture. There was excellent hemostasis and left radial pulse was strong, it is end of closure. The subcutaneous sutures were then placed followed by closure of the skin. Dressing was then applied and the patient was transferred to the observation area in stable condition. There were no complications. The procedure was well tolerated. IMPRESSION: 1. Mild calcific coronary artery disease in the left dominant left coronary artery. 2. Normal left ventricular ejection fraction. 3. Left ventricular dysfunction with an elevated end-diastolic pressure of 20 mmHg. This information was related to the patient and the patient's and he was instructed to continue his home medications and continue medical therapy. Jonatan Johnson MD [facility]/MODL /[id number]
== END | disposition home or self-care (01) ==
LOC: CATH LAB 08:48
PROVIDERS: ATTEND Internal Medicine Cardiovascular Disease
DX: I25.10 Atherosclerotic heart disease of native coronary artery without angina pectoris (principal); R94.39 Abnormal result of other cardiovascular function study; I11.9 Hypertensive heart disease without heart failure; J44.9 Chronic obstructive pulmonary disease, unspecified; Z89.612 Acquired absence of left leg above knee; Z79.82 Long term (current) use of aspirin
CPT/HCPCS: 93458; C1769 ×2; J1200; J2001; J2930; J7030; Q9967; J2250